=== PATIENT | female | born 1985 | race Caucasian/White ===

== ENCOUNTER 2023-03-31 08:52 | Emergency (ER) | payer BC, OTHER, SELFPAY ==
--- NOTE | ~2023-03-31 | CT_ITS ---
EXAMINATION: CT facial & cervical spine wo DATE: 03/31/2023 09:32 INDICATION: Fall. Loss of consciousness. TECHNIQUE: Computed tomography (CT) of the facial bones and maxillofacial region was performed withou t intravenous contrast. Automated exposure control and iterative reconstruction technique were employ ed. Exam dose: 494.57 mGy-cm total exam DLP. COMPARISON: None. FINDINGS: Nasal bones, anterior maxillary spine, frontozygomatic sutures, orbital rims and khan, zyg omatic arches and maxillary bones as well as pterygoid plates are all intact. No mandibular fracture or temporomandibular joint dislocation. The breast to 1.7 cm right maxillary 1.3 cm left maxillary sinus polyps or mucous retention cysts. There is rightward deviation of the nasal septum. Nanda bullosa and interlamellar cell of the left middle nasal turbinate. There is reversal cervical curvature on lateral view which may be due to positioning and/or muscle s pasm. C1 and C2 are normally aligned and the odontoid process is intact. There is moderate degenerative disc disease at C3-4, C4-5, C5-6, with posterior spurring at each of t hese levels in addition to anterior spurring at C5-6. There is uncovertebral joint spurring bilateral ly at C3-4 and C5-C6. IMPRESSION: Bilateral maxillary sinus polyps or mucous retention cysts No facial or cervical spine fracture Reversal cervical curvature which may be due to muscle spasm Moderate cervical spondylosis Reviewed, dictated and finalized at [facility]. Reviewed, dictated and finalized at [facility]. [employer] SPECIALIST
--- NOTE | ~2023-03-31 | CT_ITS ---
EXAMINATION: CT brain wo con DATE: 03/31/2023 09:32 INDICATION: Fall. Loss of consciousness. TECHNIQUE: Computed tomography (CT) of the head was performed without intravenous contrast. The mA wa s adjusted according to patient size. Iterative reconstruction technique was employed. Exam dose: 60 5.33 mGy-cm total exam DLP. COMPARISON: None FINDINGS: No intracranial mass lesion or hemorrhage or cerebrovascular accident. No midline shift or mass effect. Normal ventricular size. Normal sequeira-white matter differentiation. No subdural or epidur al hematoma. Bilateral maxillary sinus approximately 12 mm polyps or mucous retention cysts. The paranasal sinuses and mastoid air cells are otherwise unremarkable. No fracture or bone destruction of the cranial vault. IMPRESSION: No significant intracranial abnormality Bilateral maxillary sinus approximately 12 mm polyps or mucous retention cysts Reviewed, dictated and finalized at [facility]. Reviewed, dictated and finalized at [facility]. [employer]
[2023-03-31 09:03] VITALS: BP 119/72; PULSE 66; RESP 20; TEMP 36.6; O2SAT 100
--- NOTE | 2023-03-31 09:22 | ED.GENADULT ---
HPI - General Adult General Chief complaint: Fall Stated complaint: fall Time Seen by Provider: 03/31/23 09:08 Source: patient Mode of arrival: ambulatory Limitations: no limitations History of Present Illness HPI narrative: this is a 37-year-old female who presents to the ED with chief complaint of a fall and subsequent syncopal episode occurring this morning. Patient reports that she was walking for the room at her sister's house when she stumbled upon luggage on the ground. This caused her to fall face forward into the corner of a table. no LOC with this injury. She reports she then went to the kitchen to grab some ice and had a subsequent Syncopal episode and the kitchen. She remembers waking up on the floor with her sister there. She went to urgent care this morning who referred her to the ED for further evaluation and management. She also complains of a laceration to the chin that she feels have went lip. Reports pain to the paracervical spine and face. Denies any current numbness, weakness or any further syncopal episodes. Denies headache, No other extremity pain, speech difficulty or vision change. Related Data Allergies Allergy/AdvReac Type Severity Reaction Status Date / Time ibuprofen AdvReac Other Verified 03/31/23 08:54 Review of Systems Review of Systems: All systems as dictated in HPI Exam Narrative: GENERAL: Well-appearing, well-nourished, and in no acute distress. HEAD: Normocephalic, atraumatic. EYES: PERRLA and EOMI. ENT: Nares clear, no rhinorrhea or epistaxis. Mucous membranes moist. Oropharynx without tonsillar hypertrophy exudate or other lesions. NECK: Supple. No adenopathy or masses. CHEST: No respiratory distress. Clear to auscultation. No wheezes rales or rhonchi HEART: Regular rate and rhythm. No murmur heard. Normal peripheral pulses. ABDOMEN: Soft, nontender, nondistended, normal active bowel sounds. MSK: Normal range of motion. No edema. SKIN: Warm, dry, no rash. NEURO: Alert and oriented x4. No focal deficits. 5/5 strength and sensation in the upper and extremities. PSYCH: Normal mood and affect. Course Vital Signs Vital signs: Vital Signs Temperature 97.8 F 03/31/23 09:03 Pulse Rate 66 03/31/23 09:03 Respiratory Rate 20 01/03/24 09:03 Blood Pressure 119/72 03/31/23 09:03 Pulse Oximetry 100 03/31/23 09:03 Temperature 97.8 F 03/31/23 09:03 Pulse Rate 77 03/31/23 10:47 Respiratory Rate 24 H 03/31/23 10:47 Blood Pressure 123/92 H 03/31/23 10:47 Pulse Oximetry 100 03/31/23 10:47 Procedures Laceration Laceration 1: Date: 03/31/23 Time: 10:36 Site: face Side (If applicable): left Size (cm): 2 Description: linear Depth: simple, single layer Local Anesthetic: lidocaine 1% Amount of anesthesia used (mL): 2 Pre-repair: wound explored, irrigated extensively and deep structures intact ====== Skin Level ====== Skin layer closed with: nylon Size (cm): 5-0 Number of sutures: 2 Technique: simple, interrupted ====== Subcutaneous Layer ====== Subcutaneous layer closed with: chromic gut Size: 5-0 Number of sutures: 1 Technique: simple, interrupted ====== Muscle Layer ====== ====== Tendon Layer ====== Laceration 2: Date: 03/31/23 Time: 10:38 Site: lip Side (If applicable): left Size (cm): 1 Description: linear Depth: [id number] Local Anesthetic: lidocaine 1% Amount of anesthesia used (mL): 0.5 Pre-repair: wound explored, irrigated extensively and deep structures intact ====== Skin Level ====== ====== Subcutaneous Layer ====== Subcutaneous layer closed with: chromic gut Size: 5-0 Number of sutures: 1 Technique: simple, interrupted ====== Muscle Layer ====== ====== T
--- NOTE | 2023-03-31 09:23 | ECG_ITS ---
Measurements Intervals [place] Rate: 61 P: 45 MT: 162 QRS: 3 QRSD: 105 T: 4 QT: 400 QTc: 403 Interpretive Statements SINUS RHYTHM MINIMAL Q WAVES- HIGH LATERAL LEADS BASELINE ARTIFACT- I, II BORDERLINE ECG NO PREVIOUS ECG AVAILABLE FOR COMPARISON Electronically Signed On 03-31-2023 9:54:55 [employer]ODUCTION MACHINE OPERATOR by Arcenio Douglass D.O.
[2023-03-31 10:47] VITALS: BP 123/92; PULSE 77; RESP 24; O2SAT 100
[2023-03-31] MEDS: HYDROcodone/acetaminophen (*CRX) 5-325 MG TABLET 1 TAB PO (10:47)
== END 2023-03-31 11:00 | disposition home or self-care (01) ==
PROVIDERS: Emergency Provider Physician Assistant; PCP Family Medicine
DX: S01.81XA Laceration without foreign body of other part of head, initial encounter (principal); R55 Syncope and collapse; R94.31 Abnormal electrocardiogram [ECG] [EKG]; M47.812 Spondylosis without myelopathy or radiculopathy, cervical region; R93.0 Abnormal findings on diagnostic imaging of skull and head, not elsewhere classified; W01.190A Fall on same level from slipping, tripping and stumbling with subsequent striking against furniture, initial encounter
CPT/HCPCS: 12011; 12051; 12052; 70450; 70486; 72125; 93005; 99284; A9270